=== PATIENT | female | born 1930 | race Caucasian/White ===

== ENCOUNTER → 2016-08-18 | Outpatient (CLI) | payer MEDICARE, BC ==
[~2016-08-18] MED LIST: ALBUTEROL SULFAT3 M3 IH; ALMACONE 360 M360 ML PO; ALPHAG-P-0.1-5ML; ANTACID1 CT2 PO; ASPERCREME TOP; ASPERCREME85G TP; ASPIRIN 81M81 MG/TA2 PO; ASPIRIN E.C. 8181 MG PO; CALAN120 MG PO; CALCIUM CITRAT200 MG; CECLOR 250MG250 MG PO; CEFACLOR250 MG PO; CEFTIN500 MG PO; CHLOR TRIMETON 44 MG PO; CITRACAL + D CA1 TAB PO; CORDARONE200 MG/TAB PO; COUMADIN 5MG5 MG/TAB PO; COZAAR 25MG25 MG/TAB PO; CRANBERRY FRUI405 MG PO; CRANBERRY1 CAP PO; DULCOLAX S10 MG/SUPP RC; DUO-KAPS1 CAP PO; ELIQUIS 2.5 PO; ELIQUIS 5MG PO; ESTRACE0.1 MG/GM VG; FLONASE NASAL S16 GM NS; FLONASEALLERGY; FLONASEALLERGY NS; FOLIC ACID 11 MG/TA1 PO; IMODIUM 2MG CAPS2 MG PO; K-DUR 10 MEQ T10 MEQ PO; K-DUR20 MEQ PO; KLOR-CON M2020 MEQ PO; LACRI-LUBE1 OIN OU; LASIX 20MG TABL20 MG PO; LIORESAL 1010 MG/TAB PO; LOMOTIL 0.025 M1 TAB PO; MACROBID 1100 MG/CAP PO; MACRODANTIN50 MG/CA1 PO; MAXITROL OPHTH3.5 GM OP; METHOTREXA2.5 MG/TAB PO; MILK OF MA400 MG/52 PO; NORVASC 5MG5 MG/TAB PO; NORVASC2.5 MG PO; OPTIVE SENSITI0.4 ML OP; PACERONE400 MG PO; PROAIR HFA0.09 MG/AC IH; REFRESH 1 ML1 ML OU; REFRESH DRY EYE15 ML OP; REFRESH TEARS 330 ML OP; RT SPIRIVA18 MCG IH; RYTHMOL225 MG PO; RYTHMOL300 MG PO; SINGULAIR 110 MG/TAB PO; TAMBOCOR 1100 MG/TAB PO; TAMBOCOR150 MG PO; TIAZAC180 MG PO; TIKOSYN0.25 MG PO; TRIAMCINOLONE0.11 TP; TROLAMINE SALICYL 10% TP; TYLENOL 325MG325 MG PO; ULTRAM 50MG TAB50 MG PO; VENTOLIN0.09 MG; VENTOLIN0.09 MG IH; VITAMIN D3400 IU PO; XALATAN EYE DROPS OD; ZIAC 5/6.25MG T1 TAB PO; ZYRTEC 10MG10 MG PO; [UNRECOGNIZED DRUG - OTHER]
== END ==
LOC: MC.RAD 13:55
DX: Z12.31 Encounter for screening mammogram for malignant neoplasm of breast (principal)

== ENCOUNTER → 2017-09-28 | Outpatient (CLI) | payer MEDICARE, BC | LOC: MC.RAD 13:51 | DX: Z12.31 Encounter for screening mammogram for malignant neoplasm of breast (principal) ==

== ENCOUNTER → 2018-05-22 | Outpatient (CLI) | payer MEDICARE, BC | LOC: COL.VAS 10:52 | DX: I08.1 Rheumatic disorders of both mitral and tricuspid valves (principal); I27.20 Pulmonary hypertension, unspecified; J90 Pleural effusion, not elsewhere classified ==

== ENCOUNTER → 2018-11-14 | Outpatient (CLI) | payer MEDICARE, BC | LOC: MC.RAD 15:00 | DX: Z12.31 Encounter for screening mammogram for malignant neoplasm of breast (principal) ==

== ENCOUNTER → 2021-05-29 | Outpatient (CLI) | payer MEDICARE, BC ==
[~2021-05-29] MED LIST changes: +ATROVENT I0.2 MG/1 M IH; +BIOTENE DRY M1000 ML; +BIOTENE MOIST44.3 ML PO; +CRANBERRY FRUI425 MG PO; +CRANBERRY500 M3 PO; +DEBROX; +IPRATROPIUM BROM3 M1 IH; +LASIX 40MG TABL40 MG PO; +MILK OF MA400 MG/52; +MYLANTA 150 ML150 M1 PO; +OMNICEF 300MG300 MG PO; +PULMICORT0.5 MG/2 M IH; +ROBITUSSIN100 MG/5 M PO; +TYLENOL SU650 MG/SUP RC; +VITAMIN D250 MCG PO
== END ==
LOC: ZCOL.LAB 15:57
DX: R05.9 Cough, unspecified (principal); Z20.822 Contact with and (suspected) exposure to COVID-19

== ENCOUNTER 2021-06-02 08:26 | Inpatient (IN) | payer MEDICARE, BC ==
[~2021-06-02] VITALS: Ht 154.9 cm; Wt 84.3 kg
[~2021-06-02 08:26] MED LIST changes: -ATROVENT I0.2 MG/1 M IH; -BIOTENE DRY M1000 ML; -BIOTENE MOIST44.3 ML PO; -CRANBERRY500 M3 PO; -DEBROX; -IPRATROPIUM BROM3 M1 IH; -LASIX 40MG TABL40 MG PO; -MILK OF MA400 MG/52; -MYLANTA 150 ML150 M1 PO; -PULMICORT0.5 MG/2 M IH; -TYLENOL SU650 MG/SUP RC
[2021-06-02 09:06] LABS: BASO # 0.1 K/mm3 (0.0-0.2); BASO % 0.6 % (0.0-2.0); EOS # 0.7 K/mm3 (0.0-0.7); EOS % 5.6 % (0.0-4.0); GRAN # 9.4 K/mm3 (1.4-6.5); GRAN % 78.1 % (42.2-75.2); HEMOGLOBIN 11.9 g/dl (12.5-16.0); LYMPH # 0.9 K/mm3 (1.2-3.4); LYMPH % 7.7 % (20.0-51.0); MEAN CELL VOLUME 100 fl (80.0-100.0); MEAN CORPUSCULAR HEMOGLOBIN 32 pg (27-31); MEAN CORPUSCULAR HGB CONC 33 g/dl (33.0-37.0); MEAN PLATELET VOLUME 10.3 fl (7.4-10.4); MONO # 0.9 K/mm3 (0.1-0.6); MONO % 7.6 % (1.7-9.3); PLATELET COUNT 228 K/mm3 (130-400); RED BLOOD COUNT 3.67 M/mm3 (4.10-5.30); REDCELL DISTRIBUTION WIDTH-CV 13.5 % (11.5-14.5)
[2021-06-02 09:07] LABS: HEMATOCRIT 36.6 % (37.0-47.0)
[2021-06-02 09:27] LABS: BILIRUBIN,TOTAL 1.2 mg/dL (0.2-1.2); CALCIUM 9.1 mg/dL (8.4-10.2); CREATININE, serum 0.67 mg/dL (0.57-1.11); POTASSIUM 3.1 mmol/L (3.5-4.5); TOTAL PROTEIN 7.7 gm/dL (6.2-8.1)
[2021-06-02 09:33] LABS: TROPONIN-I 0.023 ng/mL (0.00-0.033)
[2021-06-02] MEDS ORDERED: LASIX 40MG TABL40 MG PO (13:35)
[2021-06-02] MEDS ORDERED: PULMICORT0.5 MG/2 M IH (13:36)
[2021-06-02] MEDS ORDERED: IPRATROPIUM BROM3 M1 IH (13:37)
[2021-06-02 14:06] VITALS: BP 132/65; PULSE 94; TEMP 98.4
[2021-06-02 16:56] VITALS: BP 104/53; PULSE 96; TEMP 98.2
[2021-06-02] MEDS ORDERED: TYLENOL SU650 MG/SUP RC (17:31)
[2021-06-02] MEDS ORDERED: BIOTENE DRY M1000 ML (17:32)
[2021-06-02] MEDS ORDERED: BIOTENE MOIST44.3 ML PO (17:34)
[2021-06-02] MEDS ORDERED: CRANBERRY500 M3 PO (17:35)
[2021-06-02] MEDS ORDERED: DEBROX (17:36)
[2021-06-02] MEDS ORDERED: IMODIUM 2MG CAPS2 MG PO (17:39)
--- NOTE | 2021-06-02 18:00 | NUR ---
Patient admitted to room 351 from ED. Report recieved from [place]. Upon initial assessment, patient requiring 6L of high flow O2. Patient extremely SOB with exertion. Shift assessment performed. Scheduled medications given. Patient denies any pain or discomfort at this time. This RN notified by tele that patient had gone into AFIB. EKG ordered and Afib confirmed. Dr. Dobbins notified. Cardiology consult placed. Upon assessment of patient, Dr. Lane instructed this RN that patient's BP and heart rate looked good and a Cardizem gtt was not needed unless patient's heart rate was above 130. This information was passed along to Dr. Dobbins. Patient is currently resting in bed. Denies any further needs at this time. Call light in reach. VSS. Patient A&O.
[2021-06-02] MEDS ORDERED: ATROVENT I0.2 MG/1 M IH (18:41)
[2021-06-02] MEDS ORDERED: LASIX 20MG TABL20 MG PO (18:42)
[2021-06-02] MEDS ORDERED: MILK OF MA400 MG/52 (18:43)
[2021-06-02] MEDS ORDERED: MYLANTA 150 ML150 M1 PO (18:44)
[2021-06-02] MEDS ORDERED: TYLENOL 325MG325 MG PO (18:45)
[2021-06-02] MEDS ORDERED: VENTOLIN0.09 MG IH (18:48)
[2021-06-02 19:30] VITALS: BP 101/45; PULSE 76; TEMP 97.6
--- NOTE | 2021-06-02 20:30 | NUR ---
Initial shift assessment done- pleasant, alert/oriented, VSS, on 6L/high flow 02, denies SOB at rest, Tele on-SR, has been resting, no requests, using the call light
[2021-06-03] VITALS (7 sets, daily range): BP systolic 108–136; BP diastolic 45–58; PULSE 63–98; TEMP 97.5–98.2
--- NOTE | 2021-06-03 06:07 | NUR ---
Quiet night-- did get some sleep last night- no requests, was incontinent of urine during the night x2- cleaned up/personal care given. Very pleasant , did do the potassium protocol during the night, will have another potassium drawn this am
[2021-06-03 06:33] LABS: BASO % 0.1 % (0.0-2.0); GRAN # 5.4 K/mm3 (1.4-6.5); GRAN % 77.1 % (42.2-75.2); HEMOGLOBIN 11.2 g/dl (12.5-16.0); LYMPH # 0.9 K/mm3 (1.2-3.4); LYMPH % 12.9 % (20.0-51.0); MEAN CELL VOLUME 101 fl (80.0-100.0); MEAN CORPUSCULAR HEMOGLOBIN 33 pg (27-31); MEAN CORPUSCULAR HGB CONC 32 g/dl (33.0-37.0); MEAN PLATELET VOLUME 10.5 fl (7.4-10.4); MONO # 0.7 K/mm3 (0.1-0.6); MONO % 9.6 % (1.7-9.3); PLATELET COUNT 215 K/mm3 (130-400); RED BLOOD COUNT 3.44 M/mm3 (4.10-5.30); REDCELL DISTRIBUTION WIDTH-CV 13.4 % (11.5-14.5)
[2021-06-03 06:45] LABS: HEMATOCRIT 34.7 % (37.0-47.0)
[2021-06-03 07:14] LABS: ALBUMIN 2.6 gm/dL (3.4-4.8); C-REACTIVE PROTEIN 16.88 mg/dL (0.00-0.50); CREATININE, serum 0.66 mg/dL (0.57-1.11); MAGNESIUM 2.1 mg/dL (1.6-2.6); PHOSPHOROUS 2.2 mg/dL (2.3-4.7); POTASSIUM 3.6 mmol/L (3.5-4.5)
--- NOTE | 2021-06-03 09:43 | NUR ---
The patient is COVID positive. RAOUL contacted the patient's son/DPOA-HC, Harjit (ph#[phone]), to discuss discharge plan. Harjit reports that the patient has been at [facility] for a skilled stay since April and he would like for the patient to return back to [facility] to continue her SNF stay upon discharge. Her PCP is Dr. Lynn Perry and her DPOA-HC is in EMR. It designates Harjit. The alternate is her other son, Edson (ph#[phone]). The patient is currently on 6 liters of oxygen. RAOUL contacted and faxed updates to Avis at [facility]. SW to continue to follow. *Discharge plan: [facility] SNF*
--- NOTE | 2021-06-03 10:52 | NUR ---
Assessment completed, alert/oriented, vital signs stable, denies pain, stated she is feeling better, lungs diminished but CTA, heart RRR/ distal pulses are palpable, ate breakfast and has taken her moring meds, denies needs , will continue to monitor
--- NOTE | 2021-06-04 02:56 | NUR ---
assessment complete. alert and oriented. scheduled meds given. int flushed and patent. denies pain.
[2021-06-04 03:50] VITALS: BP 128/56; PULSE 72; TEMP 98.3
[2021-06-04 06:53] LABS: BASO % 0.1 % (0.0-2.0); GRAN # 12.5 K/mm3 (1.4-6.5); GRAN % 83.7 % (42.2-75.2); HEMOGLOBIN 11.5 g/dl (12.5-16.0); LYMPH # 1.1 K/mm3 (1.2-3.4); LYMPH % 7.3 % (20.0-51.0); MEAN CELL VOLUME 103 fl (80.0-100.0); MEAN CORPUSCULAR HEMOGLOBIN 33 pg (27-31); MEAN CORPUSCULAR HGB CONC 32 g/dl (33.0-37.0); MEAN PLATELET VOLUME 10.6 fl (7.4-10.4); MONO # 1.3 K/mm3 (0.1-0.6); MONO % 8.4 % (1.7-9.3); PLATELET COUNT 284 K/mm3 (130-400); RED BLOOD COUNT 3.54 M/mm3 (4.10-5.30); REDCELL DISTRIBUTION WIDTH-CV 13.8 % (11.5-14.5)
[2021-06-04 06:59] LABS: HEMATOCRIT 36.3 % (37.0-47.0)
[2021-06-04 07:33] LABS: ALBUMIN 2.7 gm/dL (3.4-4.8); CALCIUM 9.4 mg/dL (8.4-10.2); CREATININE, serum 0.7 mg/dL (0.57-1.11); MAGNESIUM 2.1 mg/dL (1.6-2.6); PHOSPHOROUS 2.7 mg/dL (2.3-4.7); POTASSIUM 3.8 mmol/L (3.5-4.5)
[2021-06-04 09:00] VITALS: BP 127/49; PULSE 83
--- NOTE | 2021-06-04 09:48 | NUR ---
Assessment completd, alert/oriented, vital signs stable, she denies pain, she feels her breathing is easier this morning and she appears more relaxed this morning and breathing easy, she does ahve soem fine crackles in her bases and is still on 5-6L. o2, 1-2+edema to BLE/ continue lasix, she is eating breakfast and has taken meds, denies other needs
[2021-06-04 13:07] VITALS: BP 118/56; PULSE 72
[2021-06-04 20:20] VITALS: BP 111/48; PULSE 78; TEMP 97.6
[2021-06-05 00:46] VITALS: BP 106/49; PULSE 68; TEMP 97.8
[2021-06-05 04:00] VITALS: BP 114/52; PULSE 79; TEMP 97.7
--- NOTE | 2021-06-05 05:43 | NUR ---
O2 NEEDS REMAINED THE SAME THROUGH OUT THE NIGHT. 5L NC WITH 92 PERCENT SATURATION. PUREWICK IN PLACE. 700 DRAINED THROUGH OUT THIS SHIFT. ROUGHLY 300CC IN. ALL NEEDS MET THIS SHIFT. CALL LIGHT WITHIN REACH.
[2021-06-05 06:16] LABS: BASO % 0.1 % (0.0-2.0); EOS % 0.2 % (0.0-4.0); GRAN % 77.2 % (42.2-75.2); HEMOGLOBIN 10.9 g/dl (12.5-16.0); LYMPH # 1.4 K/mm3 (1.2-3.4); LYMPH % 10.8 % (20.0-51.0); MEAN CORPUSCULAR HEMOGLOBIN 32 pg (27-31); MEAN CORPUSCULAR HGB CONC 33 g/dl (33.0-37.0); MEAN PLATELET VOLUME 10.5 fl (7.4-10.4); MONO # 1.4 K/mm3 (0.1-0.6); MONO % 11.1 % (1.7-9.3); PLATELET COUNT 270 K/mm3 (130-400); RED BLOOD COUNT 3.37 M/mm3 (4.10-5.30); REDCELL DISTRIBUTION WIDTH-CV 13.6 % (11.5-14.5)
[2021-06-05 06:25] LABS: HEMATOCRIT 32.9 % (37.0-47.0); MEAN CELL VOLUME 98 fl (80.0-100.0)
[2021-06-05 06:33] LABS: ALBUMIN 2.5 gm/dL (3.4-4.8); C-REACTIVE PROTEIN 8.08 mg/dL (0.00-0.50); CALCIUM 8.8 mg/dL (8.4-10.2); CREATININE, serum 0.64 mg/dL (0.57-1.11); PHOSPHOROUS 3.7 mg/dL (2.3-4.7); POTASSIUM 3.9 mmol/L (3.5-4.5)
--- NOTE | 2021-06-05 08:15 | NUR ---
PATIENT A&O X 4, ASSESSMENT NOT ATYPICAL FOR COVID PATIENT. PATIENT ON 5 LPM OF OXYGEN VIA NC. IV PATENT, NO REDNESS NOTED. NO OTHER CONCERNS AT THIS TIME.
[2021-06-05 08:30] VITALS: BP 116/61; PULSE 82; TEMP 98.7
[2021-06-05 11:43] VITALS: BP 131/58; PULSE 88; TEMP 97.6
--- NOTE | 2021-06-05 11:58 | NUR ---
RAOUL faxed updates to Avis at [facility].
[2021-06-05 16:14] VITALS: BP 133/62; PULSE 74
[2021-06-05 20:31] VITALS: BP 102/53; PULSE 76; TEMP 97.8
[2021-06-06 00:15] VITALS: PULSE 80; TEMP 98.2
[2021-06-06 04:37] VITALS: BP 149/64; PULSE 83; TEMP 98.4
[2021-06-06 07:36] LABS: HEMATOCRIT 37.1 % (37.0-47.0); MEAN CELL VOLUME 102 fl (80.0-100.0); MEAN CORPUSCULAR HEMOGLOBIN 33 pg (27-31); MEAN CORPUSCULAR HGB CONC 32 g/dl (33.0-37.0); MEAN PLATELET VOLUME 10.5 fl (7.4-10.4); PLATELET COUNT 286 K/mm3 (130-400); RED BLOOD COUNT 3.65 M/mm3 (4.10-5.30); REDCELL DISTRIBUTION WIDTH-CV 13.9 % (11.5-14.5)
[2021-06-06 07:51] LABS: ALBUMIN 2.5 gm/dL (3.4-4.8); C-REACTIVE PROTEIN 8.77 mg/dL (0.00-0.50); CREATININE, serum 0.7 mg/dL (0.57-1.11); PHOSPHOROUS 3.9 mg/dL (2.3-4.7); POTASSIUM 3.6 mmol/L (3.5-4.5)
[2021-06-06 08:01] VITALS: BP 118/40; PULSE 85; TEMP 97.5
[2021-06-06 08:39] LABS: BAND 1 % (0-10); LYMPHOCYTE 15 % (20.0-51.0); NEUTROPHILS 78 % (42.0-75.2)
[2021-06-06 08:40] LABS: OVALOCYTES 1+; PLATELET ESTIMATE NORMAL (NORMAL)
[2021-06-06 12:30] VITALS: BP 120/53; PULSE 74; TEMP 98.2
--- NOTE | 2021-06-06 13:24 | NUR ---
Pt. is currently on 11L O2 NC. This RN attempted to get pt. OOB w/ MARIIA Acosta and pt. did not tolerate getting OOB. Pt. became very anxious and this RN checked pt.'s O2 sat and it was 65%-70% on 6L. Pt. was breathing through her mouth and this RN placed pt. on 15L Oximask. The pt.'s O2 sat came up to 90%. This RN called the respiratory therapist Sonya and Sonya placed pt. on 15L NC. Pt. was at 100% on 15L NC at 1320, so this RN titrated supplemental O2 to 11L. Pt.'s sat now is 99%. KATHRYN De Souza updated on telephone.
--- NOTE | 2021-06-06 14:01 | NUR ---
Pt. has tolerated this RN titrating the oxygen well. This RN has been frequently checking on patient and slowly lowering pt.'s supplemental O2. Pt. is now on 6L NC, pt.'s O2 sat is 93-95%. Pt. denies shortness of breath.
[2021-06-06 16:17] VITALS: BP 116/48; PULSE 72; TEMP 98.2
--- NOTE | 2021-06-06 16:54 | NUR ---
Pt. is on 7.5L supplemental O2, sat at 95%. Pt. reports feeling a little bit better today. Needs addressed, call light and belongings in reach. Purewick has been draining yellow urine throughout the shift. Bed alarm on.
[2021-06-06 20:51] VITALS: BP 103/43; PULSE 66; TEMP 97.6
[2021-06-07 00:46] VITALS: BP 136/77; PULSE 71; TEMP 97.6
[2021-06-07 05:00] VITALS: BP 123/42; PULSE 68; TEMP 98.5
--- NOTE | 2021-06-07 05:27 | NUR ---
NO CLINICAL CHANGES OVER NIGHT. PT REMAINS ANXIOUS AT TIMES, THIS MORNING PT IS NOT ANXIOUS AND STATES " I FEEL MUCH BETTER", PT DID NOT SLEEP TOO WELL THIS NIGHT, ONCOMING SHIFT SHOULD EXPECT DROWSINESS THROUGH OUT DAY. MEDICATIONS ADMINSTERED ORDERED. I&O RECORDED. PUREWICK IN PLACE AND FULLY FUNCTIONAL. VSS. ALL NEEDS MET THIS SHIFT.CALL LIGHT WITHIN REACH.
[2021-06-07 06:38] LABS: HEMOGLOBIN 11.2 g/dl (12.5-16.0); MEAN CELL VOLUME 99 fl (80.0-100.0); MEAN CORPUSCULAR HEMOGLOBIN 33 pg (27-31); MEAN CORPUSCULAR HGB CONC 33 g/dl (33.0-37.0); MEAN PLATELET VOLUME 10.3 fl (7.4-10.4); PLATELET COUNT 307 K/mm3 (130-400); RED BLOOD COUNT 3.43 M/mm3 (4.10-5.30); REDCELL DISTRIBUTION WIDTH-CV 13.9 % (11.5-14.5)
[2021-06-07 06:41] LABS: HEMATOCRIT 34.1 % (37.0-47.0)
[2021-06-07 07:02] LABS: ALBUMIN 2.4 gm/dL (3.4-4.8); C-REACTIVE PROTEIN 6.3 mg/dL (0.00-0.50); CALCIUM 8.6 mg/dL (8.4-10.2); CREATININE, serum 0.6 mg/dL (0.57-1.11); PHOSPHOROUS 3.2 mg/dL (2.3-4.7); POTASSIUM 4.2 mmol/L (3.5-4.5)
[2021-06-07 07:54] LABS: BAND 1 % (0-10); LYMPHOCYTE 13 % (20.0-51.0); NEUTROPHILS 81 % (42.0-75.2)
[2021-06-07 07:55] LABS: PLATELET ESTIMATE NORMAL (NORMAL)
[2021-06-07 07:59] VITALS: BP 131/48; PULSE 73; TEMP 97.8
--- NOTE | 2021-06-07 08:10 | NUR ---
Pt. progressing w/ plan of care. Pt. reports feeling better today. Pt. is on 5.5L O2 NC, her O2 sat currently is 92%. AM meds given and assessment complete. Pt. waiting for breakfast. Needs addressed. Call light and belongings in reach. [employer] external cath in place, pt.'s output is clear yellow urine. Bed alarm on.
[2021-06-07 11:07] VITALS: BP 116/47; PULSE 75; TEMP 97.7
[2021-06-07 16:59] VITALS: BP 101/50; PULSE 72; TEMP 97.8
--- NOTE | 2021-06-07 18:50 | NUR ---
Pt. had a fair day. Pt. on 9L O2 NC, sat WNL. Pt. worked with therapy today and tolerated fair. Pt. had a large BM. New IV started to RAC and old IV to left wrist removed due to pt. reporting pain. Needs addressed, call light and belongings in reach. Bed alarm on. Report given to oncBrenda connell RN.
--- NOTE | 2021-06-07 21:00 | NUR ---
Initial shift assessment done- denies pain at this time, o2 at 9L/high flow,, states she feels she is breathing so much better tonight, Tele on,SR,, Has purewick in place- drainign yellow clear uirne. Alert/oriented, pleasant, no requests.
[2021-06-07 21:01] VITALS: BP 123/49; PULSE 79; TEMP 977.7
[2021-06-08 00:52] VITALS: BP 126/50; PULSE 65; TEMP 98.2
[2021-06-08 04:54] VITALS: BP 133/53; PULSE 65; TEMP 98.5
--- NOTE | 2021-06-08 06:06 | NUR ---
Pt states thats the best sleep she has had in awhile, VSS, o2 sats 96-98% on 9Lhigh flow. No new requests.
[2021-06-08 07:50] LABS: HEMOGLOBIN 11.8 g/dl (12.5-16.0); MEAN CELL VOLUME 97 fl (80.0-100.0); MEAN CORPUSCULAR HEMOGLOBIN 32 pg (27-31); MEAN CORPUSCULAR HGB CONC 33 g/dl (33.0-37.0); MEAN PLATELET VOLUME 10.5 fl (7.4-10.4); PLATELET COUNT 327 K/mm3 (130-400); RED BLOOD COUNT 3.69 M/mm3 (4.10-5.30)
[2021-06-08 07:52] LABS: HEMATOCRIT 35.8 % (37.0-47.0)
[2021-06-08 08:08] LABS: C-REACTIVE PROTEIN 4.28 mg/dL (0.00-0.50); CALCIUM 8.8 mg/dL (8.4-10.2); CREATININE, serum 0.67 mg/dL (0.57-1.11)
[2021-06-08 08:33] LABS: BAND 4 % (0-10); EOSINOPHIL 2 % (0-4); LYMPHOCYTE 19 % (20.0-51.0); METAMYELOCYTE 4 % (0-0); NEUTROPHILS 64 % (42.0-75.2); PLATELET ESTIMATE NORMAL (NORMAL); POLYCHROMASIA 1+
[2021-06-08 08:35] VITALS: BP 103/46; PULSE 73; TEMP 97.9
[2021-06-08 12:32] VITALS: BP 128/48; PULSE 66; TEMP 97.4
[2021-06-08 16:55] VITALS: BP 132/58; PULSE 69; TEMP 98.2
--- NOTE | 2021-06-08 19:40 | NUR ---
THE PATIENT HAD AN UNEVENTFUL SHIFT. SHE DID QUESTION WHY SHE WAS NO LONGER RECIEVING ALL OF THE IV MEDICATIONS. THIS NURSE EXPLAINED TO HER THAT SHE HAD COMPLETED ALL OF HER TREATMENTS, AND NOW WE WERE JUST WAITNG FOR HER O2 NEEDS TO RESOLVE. NO OTHER CONCERNS AT THIS TIME. REPORTS GIVEN TO ROMEO QUINONEZ.
[2021-06-08 20:05] VITALS: BP 123/52; PULSE 70; TEMP 98.1
--- NOTE | 2021-06-08 20:30 | NUR ---
Initial shift assessment done- denies pain, denies SOB at rest, watching some TV, pleasant, alert/oriented x4,, has purewick on- draining clear yellow urine, o2 at 6L/high flow- tele on.
[2021-06-09] VITALS (7 sets, daily range): BP systolic 107–142; BP diastolic 41–60; PULSE 65–77; TEMP 97.5–98.4
--- NOTE | 2021-06-09 05:52 | NUR ---
Did get some sleep last night- was anxious at start of shift but calmer now, VSS,Tele on. 02 at 5.5L high flow with sats 94-97%
[2021-06-09 06:37] LABS: HEMOGLOBIN 11.4 g/dl (12.5-16.0); MEAN CELL VOLUME 98 fl (80.0-100.0); MEAN CORPUSCULAR HEMOGLOBIN 33 pg (27-31); MEAN CORPUSCULAR HGB CONC 33 g/dl (33.0-37.0); MEAN PLATELET VOLUME 10.3 fl (7.4-10.4); PLATELET COUNT 316 K/mm3 (130-400); REDCELL DISTRIBUTION WIDTH-CV 13.8 % (11.5-14.5)
[2021-06-09 06:48] LABS: CALCIUM 8.4 mg/dL (8.4-10.2); CREATININE, serum 0.63 mg/dL (0.57-1.11); POTASSIUM 3.9 mmol/L (3.5-4.5)
[2021-06-09 06:49] LABS: HEMATOCRIT 34.4 % (37.0-47.0)
--- NOTE | 2021-06-09 07:04 | NUR ---
THE PATIENT IS LAYING IN BED AT THIS TIME. PUTTING THE PATIENT IN THE RECLINER FOR BREAKFAST. NO FURTHER CONCERNS AT THIS TIME. WILL CONTINUE TO MONITOR.
[2021-06-09 07:57] LABS: BAND 13 % (0-10); LYMPHOCYTE 9 % (20.0-51.0); NEUTROPHILS 65 % (42.0-75.2); PLATELET ESTIMATE NORMAL (NORMAL)
--- NOTE | 2021-06-09 09:58 | NUR ---
PT IS IN BED AT THIS TIME. SHE STATES THAT SHE IS READY TO DO A LOT OF PT TO REGAIN STRENGTH.
--- NOTE | 2021-06-09 14:24 | NUR ---
SW faxed updates to [facility].
[2021-06-10 03:38] VITALS: BP 119/57; PULSE 65; TEMP 97.7
--- NOTE | 2021-06-10 05:40 | NUR ---
NO CLINICAL CHANGES OVERNIGHT, 02 4L NC SATURATING 97 PERCENT. [address] IN [address]. I&O NOTED AND RECORDED. ALL NEEDS MET THIS SHIFT. CALL LIGHT WITHIN REACH.
--- NOTE | 2021-06-10 08:10 | NUR ---
Pt. progressing w/ plan of care. Needs addressed. Breakfast ordered. Assessment complete. Call light and belongings in reach. Bed alarm on.
[2021-06-10 08:43] VITALS: BP 111/45; PULSE 69; TEMP 97.5
[2021-06-10 13:28] VITALS: BP 112/58; PULSE 68; TEMP 97.4
--- NOTE | 2021-06-10 14:50 | NUR ---
Pt. has been OOB in the chair since 0900. Pt. assisted back to bed at this time. Pt. ambulated 10ft. in her room and tolerated well. Pt. on 4L O2 NC O2 sat is 91%. Needs addressed, call light and belongings in reach.
--- NOTE | 2021-06-10 15:29 | NUR ---
[facility] is unable to take the patient back until 10 days from her COVID positive test. The clinical team was updated on this. RAOUL contacted and updated the patient's son, Harjit. Harjit is in agreement to the plan. RAOUL faxed updates to [facility].
[2021-06-10 16:24] VITALS: BP 119/51; PULSE 76; TEMP 98.7
[2021-06-10 19:28] VITALS: BP 118/51; PULSE 78; TEMP 97.7
[2021-06-11] VITALS (7 sets, daily range): BP systolic 97–154; BP diastolic 45–58; PULSE 65–78; TEMP 97.5–98.5
--- NOTE | 2021-06-11 06:01 | NUR ---
PT HAD UNEVENTFUL NIGHT THIS SHIFT, I&O NOTED AND RECORDED, PT OUTPUT WNL, 02 3.5L NC. ALL NEEDS MET THIS SHIFT.
--- NOTE | 2021-06-11 08:51 | NUR ---
Pt. progressing w/ plan of care. Needs addressed, assessment complete. Pt. sitting up in bed eating breakfast at this time. Bed alarm on.
--- NOTE | 2021-06-11 11:50 | NUR ---
Pt. progressing w/ plan of care. Pt. OOB to chair today, assisted by therapy. Purewick in place, draining clear yellow urine. Pt. had a bowel movement today and reports he abdomen feels less full and more comfortable compared to last night. Needs addressed, call light and belongings in reach.
--- NOTE | 2021-06-11 16:16 | NUR ---
Pt. has been on 3L O2 throughout the day. Needs addressed. Pt. back to bed with purewick in. Call light and belongings in reach.
[2021-06-12 04:44] VITALS: BP 114/68; PULSE 71; TEMP 97.6
--- NOTE | 2021-06-12 05:12 | NUR ---
PT WEANED DOWN FROM 3L TO 1.5LNC SATURATING 93 PERCENT. OUTPUT 600 THIS NIGHT. PUREWICK IN PLACE AND FUNCTIONAL. ALL NEEDS MET THIS SHIT. PT WAS VERY PLEASANT AND COOPERATIVE. CALL LIGHT WITHIN REACH.
[2021-06-12 08:00] VITALS: BP 128/57; PULSE 72; TEMP 97.9
--- NOTE | 2021-06-12 09:37 | NUR ---
Scheduled medications given. Shift assessment performed. Patient is currenlty requiring 1.5 L of O2 via nasal cannula. Denies any pain, discomfort, SOA, or further needs at this time. Call light in reach. Fall percautions in place. VSS. Patient A&O.
[2021-06-12] MEDS ORDERED: TIKOSYN0.125 MG PO (12:10)
[2021-06-12] MEDS ORDERED: TIKOSYN0.25 MG PO ×2 (12:10→12:11)
[2021-06-12 12:42] VITALS: BP 126/55; PULSE 67; TEMP 98
--- NOTE | 2021-06-12 13:08 | NUR ---
Dicharge orders faxed to Avis at [facility]. Arrangement made for transportation to pick the patient up at 1530. Patient's son notified in addition to patient's RN. Discharge plan: [facility] SNF
[2021-06-12 13:17] VITALS: BP 126/55; PULSE 67; TEMP 98
--- NOTE | 2021-06-12 14:22 | NUR ---
Patient deemed fit for discharge. Report called to Myra at [facility]. Patient denies any pain, discomfort, SOA, or further needs at this time. VSS. Patient A&O. Patient escorted from the building by staff via wheelchair.
== END 2021-06-12 13:30 | DRG 177 ==
LOC: COL.ER 08:26 → MEDICAL 10:25
PROVIDERS: Internal Medicine; Physician Assistant; Student in an Organized Health Care Education/Training Program; ADMIT Internal Medicine
PROC: XW033E5 Introduction of Remdesivir Anti-infective into Peripheral Vein, Percutaneous Approach, New Technology Group 5 (ICD-10-PCS; principal; 2021-06-02)
PROC: 5A0945A Assistance with Respiratory Ventilation, 24-96 Consecutive Hours, High Flow/Velocity Cannula (ICD-10-PCS; 2021-06-02)
DX: U07.1 COVID-19 (principal); J12.82 Pneumonia due to coronavirus disease 2019; J96.01 Acute respiratory failure with hypoxia; N39.0 Urinary tract infection, site not specified; I11.0 Hypertensive heart disease with heart failure; I50.9 Heart failure, unspecified; I27.20 Pulmonary hypertension, unspecified; J45.909 Unspecified asthma, uncomplicated; E87.6 Hypokalemia; I48.0 Paroxysmal atrial fibrillation; R32 Unspecified urinary incontinence; Z87.891 Personal history of nicotine dependence; Z23 Encounter for immunization
CPT/HCPCS: 99223-AI; 99231-AI; 99232-AI; 99233-AI; 99239; J0248; J0696; J1100; J7050; J8540

== ENCOUNTER → 2021-08-28 | Outpatient (CLI) | payer MEDICARE, BC ==
[~2021-08-28] MED LIST changes: +ATROVENT I0.2 MG/1 M IH; +BIOTENE DRY M1000 ML; +BIOTENE MOIST44.3 ML PO; +CRANBERRY500 M3 PO; +DEBROX; +IPRATROPIUM BROM3 M1 IH; +LASIX 40MG TABL40 MG PO; +MILK OF MA400 MG/52; +MYLANTA 150 ML150 M1 PO; +PULMICORT0.5 MG/2 M IH; +TIKOSYN0.125 MG PO; +TYLENOL SU650 MG/SUP RC
== END ==
LOC: COL.VAS 08-25 13:30
DX: I08.3 Combined rheumatic disorders of mitral, aortic and tricuspid valves (principal); I27.20 Pulmonary hypertension, unspecified